=== PATIENT | female | born 1965 | race Two or more races ===

== ENCOUNTER 2020-09-03 13:57 | Outpatient (CLI) | payer OTHER | END 2020-09-03 14:01 | disposition home or self-care (01) | LOC: MAMO-SONO 13:57 | PROVIDERS: ATTEND Surgery | DX: Z12.31 Encounter for screening mammogram for malignant neoplasm of breast (principal); N60.11 Diffuse cystic mastopathy of right breast; N60.12 Diffuse cystic mastopathy of left breast ==

== ENCOUNTER 2021-10-11 10:10 | Outpatient (CLI) | payer OTHER | END 2021-10-11 10:15 | disposition home or self-care (01) | LOC: PPH VACUNA 10:10 | PROVIDERS: ATTEND Emergency Medicine Pediatric Emergency Medicine | DX: Z23 Encounter for immunization (principal) ==

== ENCOUNTER 2022-02-07 15:25 | Emergency (ER) | payer OTHER ==
[~2022-02-07] VITALS: Ht 160 cm; Wt 74.8 kg
[2022-02-07] MEDS ORDERED: LEVOTHYROXINE25 MCG (16:12)
[2022-02-07] MEDS ORDERED: ZESTRIL20 MG (16:12)
[2022-02-07] MEDS ORDERED: NORVASC5 MG PO (17:50)
== END 2022-02-07 18:19 | disposition home or self-care (01) ==
LOC: ER 15:25
DX: I10 Essential (primary) hypertension (principal); R51.9 Headache, unspecified

== ENCOUNTER 2022-04-12 14:12 | Outpatient (CLI) | payer OTHER ==
[~2022-04-12 14:12] MED LIST: LEVOTHYROXINE25 MCG; NORVASC5 MG PO; ZESTRIL20 MG
== END 2022-04-12 14:18 | disposition home or self-care (01) ==
LOC: MAMO-SONO 14:12
DX: Z12.31 Encounter for screening mammogram for malignant neoplasm of breast (principal); N64.4 Mastodynia

== ENCOUNTER 2024-10-14 13:39 | Outpatient (CLI) | payer OTHER ==
[~2024-10-14 13:39] MED LIST changes: +ALLERGY RELIEF10 M3 PO; +AZITHROMYCIN250 MG PO; +BENZONATATE200 M1 PO; +ISOSORBIDE MONO60 MG PO; +MUCINEX600 MG PO
== END 2024-10-14 13:45 | disposition home or self-care (01) ==
LOC: MAMO-SONO 13:39
DX: Z12.31 Encounter for screening mammogram for malignant neoplasm of breast (principal)

== ENCOUNTER 2025-03-25 15:15 | Outpatient (CLI) | payer OTHER | END 2025-03-26 15:19 | disposition home or self-care (01) | LOC: RAD 15:15 | DX: R10.9 Unspecified abdominal pain (principal) ==

== ENCOUNTER 2025-05-02 13:36 | Outpatient (CLI) | payer OTHER | END 2025-05-02 13:39 | disposition home or self-care (01) | LOC: RAD 13:36 | DX: M54.50 Low back pain, unspecified (principal); R31.9 Hematuria, unspecified; R80.9 Proteinuria, unspecified ==

== ENCOUNTER → 2025-05-02 | Outpatient (CLI) | payer OTHER | END | disposition home or self-care (01) | LOC: NUCLEAR 11:01 | DX: M54.50 Low back pain, unspecified (principal); M81.0 Age-related osteoporosis without current pathological fracture ==